=== PATIENT | female | born 1955 | race Hispanic/Latino ===

== ENCOUNTER → 2025-02-28 | Outpatient (CLI) | payer OTHER ==
[~2025-02-28] MED LIST: IOHEXOL-350 50ML VIAL IV ONE
--- NOTE | 2025-02-28 17:40 | HMCIMG ---
EXAM: CT Head with and without Intravenous Contrast. CLINICAL HISTORY: Headache, Unspecified injury of head, initial encounter TECHNIQUE: Axial computed tomography images of the head/brain with and without intravenous contrast. CONTRAST: With intravenous contrast. COMPARISON: None provided. FINDINGS: BRAIN Ill-defined hypodensities in the subcortical white matter of the bilateral frontal lobes suggest small vessel ischemic disease. Age-related cerebral atrophy. No evidence of acute haemorrhage. No mass lesion. No abnormal enhancement. No CT evidence for acute territorial infarct. No midline shift or extra-axial collections. VENTRICLES: No hydrocephalus. ORBITS: The orbits are unremarkable. SINUSES AND MASTOIDS: Mild left-sided mastoiditis. The paranasal sinuses and right mastoid air cells are clear. BONES: No fracture. IMPRESSION: 1. No acute intracranial findings. 2. Chronic ischemic and atrophic changes. 3. Mild left-sided mastoiditis. /[place]
== END | disposition home or self-care (01) ==
LOC: RAH 09:18
PROVIDERS: ATTEND Family Medicine
DX: S09.90XA Unspecified injury of head, initial encounter (principal); I67.82 Cerebral ischemia; R51.9 Headache, unspecified; G31.9 Degenerative disease of nervous system, unspecified; H70.92 Unspecified mastoiditis, left ear
CPT/HCPCS: 70470; Q9967

== ENCOUNTER → 2025-05-09 | Outpatient (CLI) | payer OTHER ==
--- NOTE | 2025-05-09 21:07 | HMCIMG ---
EXAM: US Pelvis, Complete. CLINICAL HISTORY: Pelvic and perineal pain. TECHNIQUE: Transabdominal pelvic ultrasound (complete) with image documentation. COMPARISON: None provided. FINDINGS: ENDOMETRIUM: Endometrial echoes are not adequately distinguished. UTERUS/CERVIX: Uterus measures 9.4 x 2.1 x 3.3 cm appropriate for patients age and status post menopausal. It is anteverted in position which shows normal myometrial echotexture. No fibroid detected. RIGHT OVARY: Ovary is obscured. No gross adnexal pathology seen. LEFT OVARY: Ovary is obscured. No gross adnexal pathology seen. FREE FLUID: No free fluid. IMPRESSION: 1. Unremarkable pelvic ultrasound. /[place]
== END | disposition home or self-care (01) ==
LOC: RAH 10:07
PROVIDERS: ATTEND Family Medicine
DX: N81.4 Uterovaginal prolapse, unspecified (principal); R10.20 Pelvic and perineal pain unspecified side
CPT/HCPCS: 76856